=== PATIENT | male | born 1980 | race Caucasian/White ===

== ENCOUNTER 2019-02-25 20:52 | Outpatient (CLI) | payer BC, OTHER | END 2019-02-26 05:55 | disposition home or self-care (01) | LOC: SLEEP 20:52 | PROVIDERS: ATTEND Nurse Practitioner Family | DX: G47.33 Obstructive sleep apnea (adult) (pediatric) (principal); G47.10 Hypersomnia, unspecified | CPT/HCPCS: 95811 ==

== ENCOUNTER 2020-08-27 09:19 | Outpatient (RCR) | payer BC ==
[~2020-08-27] VITALS: Ht 177.8 cm; Wt 103.8 kg
== END 2020-08-27 13:33 | disposition home or self-care (01) ==
LOC: PREOP 09:19
PROVIDERS: ATTEND Surgery
DX: Z01.818 Encounter for other preprocedural examination (principal)

== ENCOUNTER 2020-08-29 11:08 | Day surgery (SDC) | payer BC ==
[~2020-08-29] VITALS: Ht 177.8 cm; Wt 103.8 kg
[2020-08-29] VITALS (11 sets, daily range): BP systolic 105–129; BP diastolic 56–84
[~2020-08-29 11:08] MED LIST: LIDOCAINE/EPI 1%-1:100,000 (XYLOCAINE) 50 ML ONE
[2020-08-29] MEDS ORDERED: ceFAZolin 2 GM IV Premixed 50 ML IV ONE (11:30)
[2020-08-29] MEDS: LACTATED RINGERS 1,000 ML IV PRN ×2 (11:40→13:00)
[2020-08-29] MEDS ORDERED: SEVOFLURANE (ULTANE) 15 ML INHAL SOLN ONE ×3 (11:47→13:33)
[2020-08-29] MEDS ORDERED: proPOfol 200 MG/20 ML (DIPRIVAN) VIAL IV ONE (11:47)
[2020-08-29] MEDS ORDERED: ONDANSETRON 4 MG/2 ML (SDV) Z0FRAN ONE (11:47)
[2020-08-29] MEDS ORDERED: LIDOCAINE PF 2% 5 ML (XYLOCAINE) VIAL ONE (11:47)
[2020-08-29] MEDS ORDERED: MIDAZOLAM 2 MG/2 ML (VERSED) VIAL ONE (11:48)
[2020-08-29] MEDS ORDERED: fentaNYL INJECTION 100 MCG/2 ML AMP ONE (11:48)
--- NOTE | 2020-08-29 12:01 | Progress Note-Pre Operative ---
Pre-Operative Progress Note H&P Reviewed The H&P was reviewed, patient examined and no changes noted. Date Seen by Provider: Aug 29, 2020 Time Seen by Provider: 11:50 Date H&P Reviewed: Aug 29, 2020 Time H&P Reviewed: 11:50 Pre-Operative Diagnosis: sx reducible umblical hernia KIZZY ARELLANO MD Aug 29, 2020 12:01
[2020-08-29] MEDS ORDERED: HYDR-3817 PO (12:03)
--- NOTE | 2020-08-29 12:03 | Discharge Inst-Surgical ---
D/C Lap Instructions-EILEEN New, Converted, or Re-Newed RX: RX on Chart Follow Up Appt in 2 weeks Activity as tolerated No driving for 24 hours No driving while on pain medications Incentive Spirometry use every 2 hours while awake Regular Diet Symptoms to Report: Fever over 101 degree F, Nausea/Vomiting Infection Signs and Symptoms to report: Increased redness, Foul odor of wound, Increased drainage Bathing instructions: May shower Operative Area Clean/Dry; Keep incision clean/dry If any problems/questions: Contact your physician or go to Emergency Room KIZZY ARELLANO MD Aug 29, 2020 12:03
[2020-08-29] MEDS ORDERED: ONDANSETRON 4 MG/2 ML (SDV) Z0FRAN IVP PRN ×2 (12:15)
[2020-08-29] MEDS ORDERED: ACETAMINOPHEN 325 MG TABLET PO PRN (12:15)
[2020-08-29] MEDS ORDERED: morphine INJ 10 MG/ML 1ML (SYR OR VIAL) IVP PRN ×2 (12:15)
[2020-08-29] MEDS ORDERED: MEPERIDINE (DEMEROL) INJ 50 MG/ML IVP ONE (12:15)
[2020-08-29] MEDS ORDERED: oxyCODONE/APAP 5/325MG (PERCOCET 5) TABLET PO PRN (12:15)
[2020-08-29] MEDS ORDERED: fentaNYL INJECTION 100 MCG/2 ML AMP IVP ONE (12:15)
[2020-08-29] MEDS ORDERED: morphine INJ 10 MG/ML 1ML (SYR OR VIAL) IVP ONE (12:15)
--- NOTE | 2020-08-29 13:19 | Progress Note-Post Operative ---
Post-Operative Progess Note Surgeon (s)/Toolroom Machinist (s) Surgeon KIZZY ARELLANO MD Toolroom Machinist: olinda sibley CONTENT PRODUCTION SPECIALIST Pre-Operative Diagnosis sx reducible umblical hernia Post-Operative Diagnosis same Procedure & Operative Findings Date of Procedure 08/29/20 Procedure Performed/Findings umbilical hernia repair with mesh Anesthesia Type get Estimated Blood Loss Estimated blood loss (mL): minimal Specimens/Packing Specimens Removed hernia sac KIZZY ARELLANO MD Aug 29, 2020 13:19
--- NOTE | 2020-08-29 13:58 | Anesthesia-General Post-Op ---
General Patient Condition Mental Status/LOC: Same as Preop Cardiovascular: Satisfactory Nausea/Vomiting: Absent Respiratory: Satisfactory Pain: Controlled Complications: Absent Post Op Complications Complications None Follow Up Care/Instructions Patient Instructions None needed. Anesthesia/Patient Condition Patient Condition Patient is doing well, no complaints, stable vital signs, no apparent adverse anesthesia problems. No complications reported per nursing. DESIREE BRAGA CRNA Aug 29, 2020 13:58
--- NOTE | 2020-08-29 20:52 | OPERATIVE REPORT ---
DATE OF SERVICE: 08/29/2020 ATTENDING PRIMARY CARE PHYSICIAN: Dr. Conway. PREOPERATIVE DIAGNOSIS: Symptomatic reducible umbilical hernia. POSTOPERATIVE DIAGNOSIS: Symptomatic reducible umbilical hernia. PROCEDURE: Open umbilical hernia repair with mesh. SURGEON: Kizzy Arellano MD MIXING HOUSE OPERATOR: Tay Pond APRN. ANESTHESIA: General laryngeal mask airway. ESTIMATED BLOOD LOSS: Minimal. FINDINGS: A small reducible umbilical hernia with omentum within the hernia sac. DISPOSITION: The patient tolerated the procedure well. INDICATIONS: The patient is a 40-year-old male who developed pain and swelling in the umbilical region at approximately 3 weeks ago while doing an activity. He states that at that time, he has felt an outpouching and the pain was present since that time. Upon further questioning, he reports that he has had some pain within the region of the umbilicus before, but never severe and he had never felt an outpouching until now. On examination in the office, he was found to have reducible umbilical defect, which was reducible and consistent with an umbilical hernia. DESCRIPTION OF PROCEDURE: The patient was brought to the operating room, laid supine on the table. After adequate IV pain and sedative medications and general laryngeal mask airway intubation, the abdomen was prepped and draped in standard surgical fashion. A 0.5% Marcaine with epinephrine was used to anesthetize the overlying skin in the supraumbilical rim and a crescent shaped skin incision was made using a 15 blade. An 0 silk suture was applied to the medial aspect incision for retraction. The subcutaneous tissue was then dissected down using electrocautery. Hernia sac was identified and dissected out using blunt dissection as well as electrocautery. We proceeded until the fascial defect was identified. The hernia sac was then opened using Metzenbaum scissors with omentum within the hernia sac. A 6.4 cm coated polypropylene mesh was then placed in the defect and sutured to the mesh using a transfascial 0 Prolene sutures in a concentric manner. Good hemostasis was observed. The subcutaneous tissue was then reapproximated using 3-0 Vicryl interrupted sutures and skin was closed using 4-0 Monocryl running subcuticular suture. Wound was then cleaned and covered with Dermabond, followed by tonsil sponges followed by 4 x 4 gauze followed by an abdominal binder. The patient tolerated the procedure well. We will have him continue to wear the abdominal binder on for 2 weeks and to remove the pressure dressing in approximately five days. The patient tolerated the procedure well. We will start IV normal pain medication as well as a clear liquid diet. Once he is tolerating clears and has good pain control with oral pain medications, is ambulating well, we will discharge him home. He will be instructed to do no heavy lifting or exertion for the next six weeks. Job ID: [id number] DocumentID: [id number] Dictated Date: 08/29/2020 13:31:00 Welding Machine Operator Date: 08/29/2020 20:51:42 Dictated By: KIZZY ARELLANO MD
== END 2020-08-29 15:40 | disposition home or self-care (01) ==
LOC: SDC 11:08
PROVIDERS: ATTEND Surgery
DX: K42.9 Umbilical hernia without obstruction or gangrene (principal); G47.33 Obstructive sleep apnea (adult) (pediatric); E66.9 Obesity, unspecified; Z68.32 Body mass index [BMI] 32.0-32.9, adult; Z79.899 Other long term (current) drug therapy
CPT/HCPCS: 49585; 87081; C1781

== ENCOUNTER 2023-02-11 05:38 | Outpatient (CLI) | payer BC ==
[~2023-02-11] VITALS: Ht 177.8 cm; Wt 108.2 kg
[~2023-02-11 05:38] MED LIST changes: +HYDR-3817 PO; -LIDOCAINE/EPI 1%-1:100,000 (XYLOCAINE) 50 ML ONE
[2023-02-11] MEDS ORDERED: CHOL20002 PO (10:56)
[2023-02-11] MEDS ORDERED: PSYL660P17 PO (10:56)
[2023-02-11] MEDS ORDERED: MAGN400T39 PO (10:56)
[2023-02-11] MEDS ORDERED: OMEG100032 PO (10:56)
[2023-02-11] MEDS ORDERED: ZINC50TA51 PO (10:56)
== END 2023-02-11 11:05 | disposition home or self-care (01) ==
LOC: PREOP 05:38
PROVIDERS: ATTEND Surgery
DX: Z01.818 Encounter for other preprocedural examination (principal)

== ENCOUNTER 2023-02-19 12:50 | Day surgery (SDC) | payer BC ==
[~2023-02-19] VITALS: Ht 177.8 cm; Wt 108.2 kg
[~2023-02-19 12:50] MED LIST changes: +CHOL20002 PO; +MAGN400T39 PO; +OMEG100032 PO; +PSYL660P17 PO; +ZINC50TA51 PO
[2023-02-19] MEDS ORDERED: LACTATED RINGERS 1,000 ML 1,000 ML IV STA (12:55)
[2023-02-19] MEDS ORDERED: LACTATED RINGERS 1,000 ML 1,000 ML IV ONE (12:57)
[2023-02-19 13:13] VITALS: BP 127/80
--- NOTE | 2023-02-19 14:07 | Progress Note-Pre Operative ---
Pre-Operative Progress Note Date H&P Reviewed: Feb 19, 2023 Time H&P Reviewed: 14:07 History & Physical: H&P Reviewed, Patient Examed, No changes noted Pre-Operative Diagnosis: painless rectal bleeding CRISTIANO HUGO DO Feb 19, 2023 14:07
[2023-02-19] MEDS ORDERED: MIDAZOLAM INJ 2 MG/2 ML VIAL ONE (15:16)
[2023-02-19 15:40] VITALS: BP 96/51
--- NOTE | 2023-02-19 15:44 | Anesthesia-General Post-Op ---
MAC Patient Condition Mental Status/LOC: Same as Preop Cardiovascular: Satisfactory Nausea/Vomiting: Absent Respiratory: Satisfactory Pain: Controlled Complications: Absent Post Op Complications Complications None Follow Up Care/Instructions Patient Instructions None needed. Anesthesiology Discharge Order Discharge Order Patient is doing well, no complaints, stable vital signs, no apparent adverse anesthesia problems. No complications reported per nursing. DESIREE BRAGA CRNA Feb 19, 2023 15:44
--- NOTE | 2023-02-19 15:44 | Discharge Inst-Simple/Standard ---
Discharge Inst-Standard Patient Instructions/Follow Up Plan of Care/Instructions/FU: 2 weeks Delfino Activity as Tolerated: Yes Discharge Diet: Regular Diet CRISTIANO HUGO DO Feb 19, 2023 15:44
[2023-02-19 15:45] VITALS: BP 94/51
--- NOTE | 2023-02-19 15:45 | Progress Note-Post Operative ---
Post-Operative Progess Note Surgeon (s)/Personnel Interviewer (s) Surgeon CRISTIANO HUGO DO Personnel Interviewer: na Pre-Operative Diagnosis painless rectal bleeding Post-Operative Diagnosis normal colon Procedure & Operative Findings Date of Procedure 02/19/23 Procedure Performed/Findings colonoscopy Anesthesia Type per gl accountant Estimated Blood Loss Estimated blood loss (mL): none Specimens/Packing Specimens Removed na CRISTIANO HUGO DO Feb 19, 2023 15:45
[2023-02-19 16:08] VITALS: BP 94/51
--- NOTE | 2023-02-20 01:21 | OPERATIVE REPORT ---
DATE OF SERVICE: 02/19/2023 PREOPERATIVE DIAGNOSIS: Painless rectal bleeding. POSTOPERATIVE DIAGNOSIS: Normal colon. PROCEDURE: Colonoscopy. SURGEON: Cristiano Saleh DO ANESTHESIA: Per CHART PICKER. ESTIMATED BLOOD LOSS: None. COMPLICATIONS: None. INDICATIONS: The patient is a 42-year-old male with some blood per rectum. He understands risks and benefits of procedure and wished to proceed. Consent was signed in chart. DESCRIPTION OF PROCEDURE: The patient was taken to endoscopy suite, placed in left lateral recumbent position. Timeout was performed. Digital rectal exam was performed. No palpable polyps, masses or ulcerations. Scope was inserted in the rectum and advanced all the way to the cecum with minimal difficulty. Prep was adequate. Scope was slowly retracted back. No polyps, masses or ulcerations in the cecum. The ileocecal valve was intubated. The ileum had normal appearance. Scope was retracted back. No polyps, masses or ulcerations within the cecum, ascending, transverse, descending and sigmoid colon. Once in the rectum, scope was retroflexed noting no other pathology. Scope was returned to its normal position, slowly withdrawn until completely removed. The patient tolerated the procedure well without complications, taken to recovery room in stable condition. RECOMMENDATIONS: The patient will continue to monitor. We discussed doing a capsule endoscopy for further evaluation due to his previous history. If he has any further bleeding would reevaluate at that time as well. He will need repeat screening colonoscopy per screening guidelines. It would be 10 years unless family history of colon cancer, which will then be 5. Job ID: [id number] DocumentID: [id number] Dictated Date: 02/19/2023 15:48:00 Test Deskman Date: 02/20/2023 01:20:00 Dictated By: CRISTIANO SALEH DO
== END 2023-02-19 16:07 | disposition home or self-care (01) ==
LOC: ENDO 12:50
PROVIDERS: ATTEND Surgery
DX: K62.5 Hemorrhage of anus and rectum (principal); G47.33 Obstructive sleep apnea (adult) (pediatric); E66.9 Obesity, unspecified; Z99.81 Dependence on supplemental oxygen; Z68.34 Body mass index [BMI] 34.0-34.9, adult; Z87.891 Personal history of nicotine dependence